=== PATIENT | male | born 1980 | race Two or more races ===

== ENCOUNTER 2017-08-16 17:58 | Emergency (ER) | payer SELFPAY ==
[~2017-08-16] VITALS: Ht 154.9 cm; Wt 99.8 kg
[2017-08-16 19:14] VITALS: BP 141/94
== END 2017-08-16 19:15 | disposition home or self-care (01) ==
LOC: ER 18:02
DX: S00.01XA Abrasion of scalp, initial encounter (principal); J45.909 Unspecified asthma, uncomplicated; W19.XXXA Unspecified fall, initial encounter; Y93.89 Activity, other specified; Y92.89 Other specified places as the place of occurrence of the external cause; Y99.8 Other external cause status
CPT/HCPCS: 99281; A4606; A6402; Z7610; Z7502